=== PATIENT | male | born 1955 | race Caucasian/White ===

== ENCOUNTER → 2023-11-21 07:30 | Outpatient (REF) | payer OTHER, SELFPAY | LOC: HWCARD 07:30 | PROVIDERS: ATTENDING PHYSICIAN Nurse Practitioner Family | DX: I25.10 Atherosclerotic heart disease of native coronary artery without angina pectoris (principal); R42 Dizziness and giddiness; R07.89 Other chest pain | CPT/HCPCS: 93005 ==

== ENCOUNTER → 2023-11-22 09:26 | Outpatient (REF) | payer OTHER, SELFPAY | LOC: RCS 09:26 | PROVIDERS: ATTENDING PHYSICIAN Nurse Practitioner Family | DX: R42 Dizziness and giddiness (principal); I25.10 Atherosclerotic heart disease of native coronary artery without angina pectoris; R07.89 Other chest pain; Z72.0 Tobacco use; E78.2 Mixed hyperlipidemia | CPT/HCPCS: 93017; 93350 ==

== ENCOUNTER 2024-02-01 20:35 | Inpatient (IN) | payer OTHER, SELFPAY ==
[2024-02-01] VITALS (7 sets, daily range): BP systolic 111–146; BP diastolic 66–87; BMI 23.3; BMI 22.7
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
[2024-02-01] MEDS: OMNIPAQUE 50 ML PO (15:41)
[2024-02-01 15:56] LABS: % Basophils 0.5 % (0-2); % Eosinophils 1.2 % (0-6); % Immature Granulocytes 0.3 % (0-0.5); % Lymphocytes 7.7 % (20.5-51.1); % Monocytes 10.2 % (1.7-9.3); % Neutrophils 80.1 % (42.2-75.2); Absolute Basophils 0.1 10^3/uL (0-0.2); Absolute Eosinophils 0.2 10^3/uL (0-0.7); Absolute Monocytes 1.3 10^3/uL (0.1-0.6); Absolute Neutrophils 9.9 10^3/uL (1.4-6.5); Hematocrit 41.7 % (39.0-52.0); Hemoglobin 14.4 g/dL (13.0-18.0); Mean Corp Hgb Conc. 34.5 g/dL (33.0-37.0); Mean Corpuscular Hgb 29.8 pg (27.0-31.0); Mean Corpuscular Volume 86.2 fL (80.0-94.0); Mean Platelet Volume 9.8 fL (7.4-10.4); Nucleated Red Blood Cells % 0 % (-); Platelet Count 248 10^3/uL (130-400); Red Blood Cell Count 4.84 10^6/uL (4.70-6.10); Red Cell Dist. Width 13.1 % (11.5-14.5); White Blood Cell Count 12.4 10^3/uL (4.8-10.8)
[2024-02-01 16:03] LABS: Urine Albumin Negative (Neg - Trace); Urine Bilirubin Negative (Negative); Urine Character Clear (Clear); Urine Color Yellow; Urine Glucose Negative (Negative); Urine Ketone 1+ (Negative); Urine Leukocyte Negative (Negative); Urine Nitrite Negative (Negative); Urine Occult Blood Negative (Negative); Urine Specific Gravity 1.015 (<1.030); Urine Urobilinogen Negative (Neg - 1+); Urine pH 6.5 (5.0-9.0)
[2024-02-01 16:08] LABS: ALT (SGPT) 19 U/L (0-50); AST (SGOT) 23 U/L (17-59); Alkaline Phosphatase 86 U/L (38-126); Blood Urea Nitrogen 15 mg/dl (9-20); Calcium 9.4 mg/dl (8.4-10.2); Carbon Dioxide 26 mmol/L (22-30); Chloride 101 mmol/L (98-107); Estimated Creatinine Clearance 74 ml/min; Glucose 111 mg/dl (70-99); Lipase 93 U/L (23-300); Potassium 4.3 mmol/L (3.5-5.1); Sodium 139 mmol/L (135-145); Total Bilirubin 0.7 mg/dl (0.2-1.3); Total Protein 6.8 g/dl (6.3-8.2); eGFR > 60.00
[2024-02-01] MEDS: ZOFRAN 4 MG IV (19:49)
[2024-02-01] MEDS: DILAUDID 1 MG IV (19:51)
--- NOTE | 2024-02-01 19:52 | HPS.HSE ---
Addendum entered and electronically signed by Kevin Carranza DO 02/01/24 21:06:
Patient seen and examined independently. Agree with findings and plan as set forth by BRIJESH Su.
Patient is a 68y M with PMH significant for COPD and diverticulitis who presents to ED complaining of abdominal discomfort x several days. Patient complains of feeling constipated for the past week or so and has been taking OTC medications with
minimal relief. He then developed mid / lower abdominal pain which has steadily increased. No N/V. No fevers / chills. Symptoms are similar to - though less severe than - his prior episode of diverticulitis.
Ass:
Acute Sigmoid Diverticulitis with Microperforation
COPD without Acute Exacerbation
Depression
Plan:
Admit for further evaluation and treatment.
NPO, IVFs, pain control, etc.
IV abx with Zosyn.
Colorectal Surgery evaluation.
Follow for any new / worsening symptoms.
Continue home inhaled medications, duloxetine and statin.
Original Note:
Family Physician
-
Family Physician: Teresa Ramos
Chief Complaint
-
constipation
abdominal pain
History of Present Illness
68-year-old male with history of COPD, diverticulitis, GERD stated constipation for past one week. he took milk of mag for 3 day and he moved small amount of liquid stool. denied any blood in the stool. patient stated mid lower abdominal pain which
was radiating to his bilateral thigh. denied nausea, vomiting and diarrhea. denied fever, chills, runny nose, congestion and cough. denied chest pain, sob.patient stated abdominal pain with urination and urinary frequency.
CT abdomen pelvis with extensive stranding and edema along the sigmoid colon consistent with severe diverticulitis. There is a 1.4 cm more focal focus of fluid infiltrates gas along the inferior aspect of the mid sigmoid colon suspicious for
microperforation.
patient received Dilaudid, Levaquin,Flagyl and Zofran in ER. admitting for further management.
Medical History
Past Medical History
Past Medical History: Reports Other
Additional Past Medical History:
COPD
diverticulosis
GERD
HLD
depression
Past Surgical History: Reports Other
Additional Past Surgical History:
Tonsillectomy
exlap
wisdom teeth extraction
hernia repair
Social History
Tobacco: Smoker (1 pack )
Alcohol: None
Drug: None
Personal:
Living: With Family
Family History
Family History: Not pertinent
Allergies / Home Medications
Allergies reflects when Allergies were last updated in [employer].
Home Medications with original date entered in [employer]
Allergy/Medication List:
Allergies
Allergy/AdvReac Type Severity Reaction Status Date / Time
No Known Allergies Allergy Verified 02/01/24 14:20
Home Medications
cyanocobalamin (vitamin B-12) 1,000 mcg tablet 1,000 mcg PO DAILY anemia 11/05/18
albuterol sulfate 90 mcg/actuation aerosol inhaler 2 puff inhalation R Q4HPRN PRN sob 02/01/24
cholecalciferol (vitamin D3) 50 mcg (2,000 unit) tablet (Vitamin D3) 50 mcg PO DAILY 02/01/24
duloxetine 30 mg capsule,delayed release 30 mg PO BID 02/01/24
ibuprofen 200 mg tablet (Advil) 400 mg PO Q8HPRN PRN mild pain 02/01/24
rosuvastatin 20 mg tablet 20 mg PO HS 02/01/24
Review of Systems
-
Constitutional: Reports No Symptoms
EENT: Reports No Symptoms
Respiratory: Reports No Symptoms
Cardiac: Reports No Symptoms
Abdomen/GI: Reports Abdominal Pain and Constipated
: Reports Frequency
Musculoskeletal: Reports No Symptoms
Skin: Reports No Symptoms
Neurological: Reports No Symptoms
Endocrine: Reports No Symptoms
Hematologic/Lymphatic: Reports No Symptoms
Psych: Reports No Symptoms
Physical Exam
Vital Signs
Vital Signs
Temp Pulse Resp BP Pulse Ox
99.5 F 66 16 122/86 98
02/01/24 19:48 02/01/24 19:48 02/01/24 19:48 02/01/24 19:48 02/01/24 19:48
Physical Exam
General: Well Developed, Well Nourished and No Apparent Distress
HEENT: NormoCephalic, Moist mucous membranes and Atraumatic
Respiratory: Clear
Cardiac: S1/S2 and Regular Rhythm; No Murmur or Rub
GI: Soft, Non Tender, Non Distended and Normal Bowel Sounds; No Organomegaly
Rectal: Deferred by Provider
Musculoskeletal: No Clubbing, No Cyanosis and No Edema
Skin: No Rash
Neuro: AO x 3 and Nonfocal/grossly intact
Psych: Calm
Laboratory Results
-
02/01/24 15:38
02/01/24 15:38
Laboratory Results
Total Bilirubin 0.7 mg/dl (0.2-1.3) 02/01/24 15:38
AST 23 U/L (17-59) 02/01/24 15:38
ALT 19 U/L (0-50) 02/01/24 15:38
Alkaline Phosphatase 86 U/L (38-126) 02/01/24 15:38
Lipase 93 U/L (23-300) 02/01/24 15:38
Data Reviewed
-
CT Scan: Report Reviewed by me
Lab Data: Labs Reviewed by me
Impression/Plan
-
#severe diverticulitis possible perforation
-wbc 12.4
-keep patient NPO
-colorectal consulted
-CT abdomen pelvis with There is extensive stranding and edema along the sigmoid colon consistent with severe diverticulitis. There is a 1.4 cm more focal focus of fluid infiltrates gas along the inferior aspect of the mid sigmoid colon suspicious
for microperforation.
-iv Levaquin and Flagyl in ER
-add Zosyn
-LR continued for hydration
-Tylenol prn fo fever
-Dilaudid prn for pain
#COPD
-not in exacerbation
-nebs from home continued
#depression
-duloxetine continued
#HLD
-statin continued
#nicotine dependence
-denied nicotine patch.
#DVT prophylaxis
-Lovenox
#CODE status
-full code
[2024-02-01] MEDS: FLAGYL 500 MG 100 IV (19:55)
[2024-02-01] MEDS: LEVAQUIN 100 IV (19:55)
[2024-02-01] MEDS: LR 1000 IV (22:37)
[2024-02-01] MEDS: ZOSYN 50 IV (22:44)
[2024-02-01] MEDS: CRESTOR 20 MG PO (22:46)
[2024-02-01] MEDS: TYLENOL 650 MG PO (22:46)
--- NOTE | 2024-02-01 23:30 | PTCARENOTE ---
Pt received from ED at 2320. Pt pleasant, AAOX3, VSS, and able to ambulate into room. Pt receptive to room and call roach, pt bed in lowest position and call roach within reach. Pt educated on importance of call roach usage, pt relays understanding and
cooperation. Will continue with current plan of care.
[2024-02-02] MEDS: ZOSYN 50 IV ×4 (03:56→21:42)
[2024-02-02] MEDS: DILAUDID 0.5 MG IV ×4 (03:59→22:28)
[2024-02-02 06:03] LABS: Hematocrit 40.2 % (39.0-52.0); Hemoglobin 13.9 g/dL (13.0-18.0); Mean Corp Hgb Conc. 34.6 g/dL (33.0-37.0); Mean Corpuscular Hgb 30.5 pg (27.0-31.0); Mean Corpuscular Volume 88.4 fL (80.0-94.0); Mean Platelet Volume 9.9 fL (7.4-10.4); Platelet Count 230 10^3/uL (130-400); Red Blood Cell Count 4.55 10^6/uL (4.70-6.10); Red Cell Dist. Width 12.9 % (11.5-14.5); White Blood Cell Count 12.5 10^3/uL (4.8-10.8)
[2024-02-02 06:26] LABS: Blood Urea Nitrogen 14 mg/dl (9-20); Calcium 9.1 mg/dl (8.4-10.2); Carbon Dioxide 26 mmol/L (22-30); Chloride 101 mmol/L (98-107); Estimated Creatinine Clearance 67 ml/min; Glucose 92 mg/dl (70-99); Potassium 4.4 mmol/L (3.5-5.1); Sodium 138 mmol/L (135-145); eGFR > 60.00
[2024-02-02 07:00] VITALS: BP 115/68
--- NOTE | 2024-02-02 07:41 | W.PN.HOSP.TC ---
Today's Communication/Plan
-
diet as per surgery
IVF completed, monitor off
cont abx
pain control
Assessment / Plan
Assessment / Plan
Physical Exam
General: Well Developed, Well Nourished and No Apparent Distress
HEENT: NormoCephalic, Moist mucous membranes and Atraumatic
Respiratory: Clear
Cardiac: S1/S2 and Regular Rhythm; No Murmur or Rub
GI: Soft, Non Tender, Non Distended and Normal Bowel Sounds; No Organomegaly
Musculoskeletal: No Clubbing, No Cyanosis and No Edema
Skin: No Rash
Neuro: AO x 3 and Nonfocal/grossly intact
Psych: Calm
68M COPD, diverticulitis, GERD constipation for past one week. Denied any blood in the stool. Reported mid lower abdominal pain radiating to his bilateral thigh. Denied nausea, vomiting, diarrhea, fever, chills, runny nose, congestion and cough.
Reported abdomen pain with urination and urinary frequency. CT abdomen pelvis with extensive stranding and edema along the sigmoid colon consistent with severe diverticulitis. There was 1.4 cm more focal focus of fluid infiltrates gas along the
inferior aspect of the mid sigmoid colon suspicious for microperforation.
#severe diverticulitis possible perforation
-colorectal consult appreciated, diet advanced to clear liquid tolerating
-received iv Levaquin and Flagyl in ER
-abx continued with Zosyn
-IVF support completed
-Tylenol prn fo fever
-Dilaudid prn for pain
#COPD
-not in exacerbation
-nebs from home continued
#depression
-duloxetine continued
#HLD
-statin continued
#nicotine dependence
-denied nicotine patch.
#DVT prophylaxis
-Lovenox
#CODE status
-full code
I spent a total of 50 minutes with the patient or on the floor. More than 50% of this time involved counseling and coordination of care.
Anticipated Discharge: 24 - 48 hours
Subjective/Interval History
-
Date of Service: February 02, 2024
Seen and examined at bedside in no acute distress resting comfortably in bed. Reports lower abd pain/tenderness persists but well controlled at this time with current pain regimen. Denies nausea. Tolerated cleare liquid diet.
Objective Data
-
Labs:
Laboratory Results
02/02/24
05:27
WBC 12.5 H
Hgb 13.9
Hct 40.2
Plt Count 230
Sodium 138
Potassium 4.4
Chloride 101
Carbon Dioxide 26
BUN 14
Creatinine 1.0
Glucose 92
Calcium 9.1
Vital Signs:
Vital Signs
Temp Pulse Resp BP Pulse Ox
99.1 F 77 18 124/66 96
02/01/24 23:24 02/02/24 01:27 02/02/24 01:27 02/01/24 23:24 02/02/24 01:27
[2024-02-02] MEDS: CYMBALTA DELAYED RELEASE 30 MG PO ×2 (08:37→19:43)
[2024-02-02] MEDS: LR IV (11:56)
--- NOTE | 2024-02-02 14:09 | CON.CRS ---
Consultation
-
Date/Time Consultation Requested: 02/01/2024, 19:43
Date/Time Consultation Performed: 02/02/2024, 10:30
Requesting Provider: Nancy Young
Performing Provider: Rebel Zavala MD
Reason for Consultation: diverticulitis
Medical History
-
Chief Complaint: abdominal pain
History of Present Illness:
68yo male with a PMH of diverticulitis presents to the ER yesterday with several days of constipation and abdominal pain. He denies fevers, chills, nausea or vomiting. He took milk of magnesia yesterday and had a small amount of liquid stool. He has
no blood in his stool. He had mid lower abdominal pain into his thigh and feels a little better today. The patient states this is his second attack, although he does have three CT scans showing diverticulitis at different times - one in 2018, one in
2019, and CT performed yesterday. He was seen in consult in [address] Mcpherson. He was treated with bowel rest and antibiotics at that time. CT A/P performed yesterday shows extensive stranding and edema along the sigmoid colon consistent with severe
diverticulitis. There is a 1.4 cm more focal focus of fluid infiltrates gas along the inferior aspect of the mid sigmoid colon suspicious for microperforation. He has been admitted and started on IV antibiotics.
His last colonoscopy was in [address] Mcpherson which revealed one 5 mm polyp in the sigmoid colon with diverticulosis in the sigmoid colon.
Past Medical History
Past Medical History: Other (COPD, diverticulosis, GERD, HLD, depression )
Past Surgical History: Other (Tonsillectomy, exlap, wisdom teeth extraction, hernia repair)
Social History
Tobacco: Smoker (1 pack)
Alcohol: None
Drug: None
Personal:
Living: With Family
Family History
Family History: Reviewed & Not Pertinent
Allergies / Home Medications
Allergy/AdvReac Type Severity Reaction Status Date / Time
No Known Allergies Allergy Verified 02/01/24 14:20
�Medication �Instructions �Recorded �Confirmed �Type
cyanocobalamin (vitamin B-12) 1,000 mcg PO DAILY anemia 11/05/18 02/01/24 History
1,000 mcg tablet
albuterol sulfate 90 mcg/actuation 2 puff inhalation R Q4HPRN PRN sob 02/01/24 02/01/24 History
aerosol inhaler
cholecalciferol (vitamin D3) 50 50 mcg PO DAILY 02/01/24 02/01/24 History
mcg (2,000 unit) tablet (Vitamin
D3)
duloxetine 30 mg capsule,delayed 30 mg PO BID 02/01/24 02/01/24 History
release
ibuprofen 200 mg tablet (Advil) 400 mg PO Q8HPRN PRN mild pain 02/01/24 02/01/24 History
rosuvastatin 20 mg tablet 20 mg PO HS 02/01/24 02/01/24 History
Review of Systems
-
History Source: Patient
Abdomen/GI: Abdominal Pain and Constipated
A 10 point review of systems was completed, and was negative except as per HPI.
Physical Exam
Vital Signs
Temp 98 F 02/02/24 07:00
Pulse 77 02/02/24 07:00
Resp Rate 18 02/02/24 07:00
Blood pressure 115/68 02/02/24 07:00
SaO2 99 02/02/24 07:00
02/01/24 02/02/24 02/03/24
06:59 06:59 05:59
Actual Weight 65.68 kg
Body Mass Index (BMI) 22.7
Lab Results / Allergies
02/02/24 05:27
02/02/24 05:27
WBC 12.5 10^3/uL (4.8-10.8) H 02/02/24 05:27
Hgb 13.9 g/dL (13.0-18.0) 02/02/24 05:27
Hct 40.2 % (39.0-52.0) 02/02/24 05:27
Plt Count 230 10^3/uL (130-400) 02/02/24 05:27
Abs Immat Gran (auto) 0.0 10^3/uL (0-0.05) 02/01/24 15:38
Neutrophils % 80.1 % (42.2-75.2) H 02/01/24 15:38
Allergy/AdvReac Type Severity Reaction Status Date / Time
No Known Allergies Allergy Verified 02/01/24 14:20
Physical Exam
General: Well Developed, Well Nourished and No Apparent Distress
GI: Soft, Non Distended and Tender (LLQ- mild)
Skin: Warm and Dry
Neuro: AO x 3
Psych: Calm
Data Reviewed
-
CT Scan: Image Personally Visualized and interpreted, Report Reviewed by me and Discussed with Patient
Labs: Labs Reviewed by me, Discussed with Physician and Discussed with Patient
Old Records: Reviewed
Assessment / Plan
-
Assessment: 68 yo male presents with several days of constipation and abdominal pain, with uncomplicated sigmoid diverticulitis on CT
Plan:
-Advance diet to clears
-No plans for OR at this time. If he worsens, he will require a colectomy with colostomy creation.
-Continue IV antibiotics.
-Will follow
[2024-02-02 15:00] VITALS: BP 117/70
[2024-02-02] MEDS: LOVENOX 40 MG SC (17:07)
[2024-02-02] MEDS: CRESTOR 20 MG PO (21:39)
[2024-02-02 23:40] VITALS: BP 107/66
[2024-02-03] MEDS: ZOSYN 50 IV ×4 (03:14→21:05)
--- NOTE | 2024-02-03 06:41 | W.PN.HOSP.TC ---
Today's Communication/Plan
-
cont zosyn
pain control
diet as per CRS
Assessment / Plan
Assessment / Plan
Physical Exam
General: Well Developed, Well Nourished and No Apparent Distress
HEENT: NormoCephalic, Moist mucous membranes and Atraumatic
Respiratory: Clear
Cardiac: S1/S2 and Regular Rhythm; No Murmur or Rub
GI: Soft, Suprapubic tenderness, Non Distended and Normal Bowel Sounds; No Organomegaly
Musculoskeletal: No Clubbing, No Cyanosis and No Edema
Skin: No Rash
Neuro: AO x 3 and Nonfocal/grossly intact
Psych: Calm
68M COPD, diverticulitis, GERD constipation for past one week. Denied any blood in the stool. Reported mid lower abdominal pain radiating to his bilateral thigh. Denied nausea, vomiting, diarrhea, fever, chills, runny nose, congestion and cough.
Reported abdomen pain with urination and urinary frequency. CT abdomen pelvis with extensive stranding and edema along the sigmoid colon consistent with severe diverticulitis. There was 1.4 cm more focal focus of fluid infiltrates gas along the
inferior aspect of the mid sigmoid colon suspicious for microperforation.
#severe diverticulitis possible perforation
-colorectal consult appreciated, diet gradually advanced to full liquid
-received iv Levaquin and Flagyl in ER
-abx continued with Zosyn
-IVF support completed
-Tylenol prn fo fever
-Dilaudid prn for pain
#COPD
-not in exacerbation
-nebs from home continued
#depression
-duloxetine continued
#HLD
-statin continued
#nicotine dependence
-denied nicotine patch.
#DVT prophylaxis
-Lovenox
PT eval appreciated not needs
#CODE status
-full code
Discussed with patient and patient's Eloina (goes by 'Milana, like the car')
I spent a total of 40 minutes with the patient or on the floor. More than 50% of this time involved counseling and coordination of care.
Anticipated Discharge: 24 - 48 hours
Subjective/Interval History
-
Date of Service: February 03, 2024
Pain persists but otherwise tolerable with current pain regimen. Tolerating diet. Denies nausea. no bowel movements but passing flatus. present during evaluation.
Objective Data
-
Labs:
Laboratory Results
02/03/24
06:02
WBC Pending
Hgb Pending
Hct Pending
Plt Count Pending
Sodium Pending
Potassium Pending
Chloride Pending
Carbon Dioxide Pending
BUN Pending
Creatinine Pending
Glucose Pending
Calcium Pending
Vital Signs:
Vital Signs
Temp Pulse Resp BP Pulse Ox
99.7 F 76 18 107/66 96
02/02/24 23:40 02/02/24 23:40 02/02/24 23:40 02/02/24 23:40 02/02/24 23:40
I&O
02/01/24 02/02/24 02/03/24
06:59 06:59 05:59
Intake Total 1451 / 1451
Balance 1451 / 1451
[2024-02-03 07:02] LABS: Hematocrit 39.4 % (39.0-52.0); Mean Corp Hgb Conc. 35.5 g/dL (33.0-37.0); Mean Corpuscular Hgb 30.6 pg (27.0-31.0); Platelet Count 226 10^3/uL (130-400); Red Blood Cell Count 4.58 10^6/uL (4.70-6.10); Red Cell Dist. Width 12.5 % (11.5-14.5)
[2024-02-03 07:20] LABS: Blood Urea Nitrogen 11 mg/dl (9-20); Calcium 8.9 mg/dl (8.4-10.2); Carbon Dioxide 24 mmol/L (22-30); Chloride 97 mmol/L (98-107); Estimated Creatinine Clearance 74 ml/min; Glucose 83 mg/dl (70-99); Magnesium 1.9 mg/dl (1.6-2.3); Phosphorus 3.7 mg/dl (2.5-4.5); Potassium 4.1 mmol/L (3.5-5.1); Sodium 136 mmol/L (135-145); eGFR > 60.00
[2024-02-03 07:58] VITALS: BP 110/70
[2024-02-03] MEDS: CYMBALTA DELAYED RELEASE 30 MG PO ×2 (08:24→21:06)
[2024-02-03] MEDS: DILAUDID 0.5 MG IV ×2 (08:28→18:17)
--- NOTE | 2024-02-03 10:45 | CM ---
Met with patient at bedside; initial assessment completed
IMM benefit explained; form signed @ 1045
Pharmacy verified: [facility] @ [address] [facility], [place], [place]
Lives with in a multilevel home; no steps to enter; 20 steps between floor; railing present; powder room on 1st floor; 2nd floor bath has tub w/shower
PLOF: reported he is independent with ambulation, stairs, and ADLs; Drives; Retired
will transport home
No SNF or Home Health utilization history
Plan: Discharge to home when medically stable; no needs anticipated
--- NOTE | 2024-02-03 11:38 | W.PN.CRS1 ---
Today's Communication / Plan
-
advance to fulls
Assessment/Plan
-
Assessment: 68 yo male presents with several days of constipation and abdominal pain, with uncomplicated sigmoid diverticulitis on CT
Plan:
-Advance diet to fulls
-No plans for OR at this time. If he worsens, he will require a colectomy with colostomy creation.
-Continue IV antibiotics.
-Will follow
Subjective Data
Subjective Data
Date of Service: February 03, 2024
Patient states he is still in 'quite a bit of pain' until this morning, when he had a lot of flatus and then felt better. He denies nausea or vomiting. He has been drinking clears without difficulty.
Objective Data
-
Vital Signs
Temp Pulse Resp BP Pulse Ox
98.3 F 76 16 110/70 98
02/03/24 07:58 02/03/24 07:58 02/03/24 07:58 02/03/24 07:58 02/03/24 07:58
Intake & Output
02/02/24 02/03/24 02/04/24
07:59 06:59 06:59
Intake Total
Balance
Intake:
Oral fluids
IV fluids (Total)
IV piggybacks
Other:
Number of approximated MODERATE
amounts of urine
Lab Results
02/03/24 06:02
02/03/24 06:02
Physical Exam
-
General: No Acute Distress and AOx3
Abdomen: Soft, Non Distended and Tender (suprapubic - moderate)
Skin: Warm and Dry
[2024-02-03 16:08] VITALS: BP 125/72; PULSE 77; O2SAT 97
[2024-02-03 16:42] VITALS: BP 123/65
[2024-02-03] MEDS: LOVENOX 40 MG SC (17:42)
[2024-02-03] MEDS: CRESTOR 20 MG PO (21:06)
[2024-02-03] MEDS: TYLENOL 650 MG PO (21:10)
[2024-02-03 23:37] VITALS: BP 101/61
[2024-02-04] MEDS: ZOSYN 50 IV ×4 (04:33→22:09)
[2024-02-04 07:15] VITALS: BP 104/69
[2024-02-04 08:28] LABS: Hematocrit 38.6 % (39.0-52.0); Hemoglobin 13.7 g/dL (13.0-18.0); Mean Corp Hgb Conc. 35.5 g/dL (33.0-37.0); Mean Corpuscular Hgb 30.4 pg (27.0-31.0); Mean Corpuscular Volume 85.6 fL (80.0-94.0); Platelet Count 258 10^3/uL (130-400); Red Blood Cell Count 4.51 10^6/uL (4.70-6.10); Red Cell Dist. Width 12.4 % (11.5-14.5); White Blood Cell Count 8.1 10^3/uL (4.8-10.8)
[2024-02-04] MEDS: CYMBALTA DELAYED RELEASE 30 MG PO ×2 (08:37→19:20)
[2024-02-04 09:00] LABS: Blood Urea Nitrogen 9 mg/dl (9-20); Calcium 8.8 mg/dl (8.4-10.2); Carbon Dioxide 26 mmol/L (22-30); Chloride 98 mmol/L (98-107); Estimated Creatinine Clearance 74 ml/min; Glucose 94 mg/dl (70-99); Phosphorus 3.4 mg/dl (2.5-4.5); Sodium 138 mmol/L (135-145); eGFR > 60.00
--- NOTE | 2024-02-04 09:11 | W.PN.HOSP.TC ---
Today's Communication/Plan
-
Doing better
If stable/improved, can discharge tomorrow, as per colorectal surgery
Assessment / Plan
Assessment / Plan
Physical Exam
General: Not in acute distress.
HEENT: Normocephalic, Moist mucous membranes and Atraumatic
Respiratory: CTAB
Cardiac: S1/S2 and Regular Rhythm
GI: Soft, Non Distended and Normal Bowel Sounds. Lower abdominal mild to moderate tenderness.
Musculoskeletal: No Cyanosis and No Edema
Skin: Warm. Dry.
Neuro: AAO x 3 and Nonfocal/grossly intact
Psych: Calm
Assessment/Plan
68M COPD, diverticulitis, GERD constipation for past one week. Denied any blood in the stool. Reported mid lower abdominal pain radiating to his bilateral thigh. Denied nausea, vomiting, diarrhea, fever, chills, runny nose, congestion and cough.
Reported abdomen pain with urination and urinary frequency. CT abdomen pelvis with extensive stranding and edema along the sigmoid colon consistent with severe diverticulitis. There was 1.4 cm more focal focus of fluid infiltrates gas along the
inferior aspect of the mid sigmoid colon suspicious for microperforation.
#Severe diverticulitis possible perforation
-Colorectal surgery consultation appreciated, diet gradually advanced to Low Residue
-Received intravenous Levaquin and Flagyl in the emergency room
-Continue Zosyn
-IVF support completed
-Tylenol prn for fever
-Dilaudid prn for pain
#COPD
-not in exacerbation
-nebs from home continued
#depression
-duloxetine continued
#HLD
-statin continued
#nicotine dependence
-denied nicotine patch.
#DVT prophylaxis
-Lovenox
PT eval appreciated not needs
#CODE status
-full code
Discussed with patient and patient's Eloina (goes by 'Milana, like the car')
Anticipated Discharge: Within 24 hours
Subjective/Interval History
-
Date of Service: February 04, 2024
Patient was seen and examined. He reported soft, brown mushy stools with some water in his bowel movements overnight. He reports his pain and symptoms overall had improved.
Objective Data
-
Labs:
Laboratory Results
02/04/24
06:24
WBC 8.1
Hgb 13.7
Hct 38.6 L
Plt Count 258
Sodium 138
Potassium 4.0
Chloride 98
Carbon Dioxide 26
BUN 9
Creatinine 0.9
Glucose 94
Calcium 8.8
Vital Signs:
Vital Signs
Temp Pulse Resp BP Pulse Ox
98.1 F 64 16 104/69 99
02/04/24 07:15 02/04/24 07:15 02/04/24 07:15 02/04/24 07:15 02/04/24 07:15
I&O
02/03/24 02/04/24 02/05/24
06:59 06:59 06:59
Intake Total 760 / 760
Balance 760 / 760
--- NOTE | 2024-02-04 09:32 | W.PN.CRS1 ---
Today's Communication / Plan
-
low residue diet
Assessment/Plan
-
Assessment: 68 yo male presents with several days of constipation and abdominal pain, with uncomplicated sigmoid diverticulitis on CT
Plan:
-Advance diet to low residue
-No plans for OR at this time. Will discuss with Dr. Mcpherson in the outpatient setting if he should need elective surgery given his number of prior attacks.
-Continue IV antibiotics. Finish oral course as an outpatient.
-Anticipate discharge tomorrow if tolerates a low residue diet today. Follow up with Dr. Mcpherson in a few weeks.
Subjective Data
Subjective Data
Date of Service: February 04, 2024
Patient states he feels much better than yesterday. He still has pain, but it has decreased. He denies nausea or vomiting. He has flatus and bowel movements.
Objective Data
-
Vital Signs
Temp Pulse Resp BP Pulse Ox
98.1 F 64 16 104/69 99
02/04/24 07:15 02/04/24 07:15 02/04/24 07:15 02/04/24 07:15 02/04/24 07:15
Intake & Output
02/03/24 02/04/24 02/05/24
06:59 06:59 06:59
Intake Total 760 / 760
Balance 760 / 760
Intake:
Oral fluids 660 / 660
IV fluids (Total) 0 / 0
IV piggybacks 100 / 100
Other:
Number of approximated MODERATE 3
amounts of urine
Lab Results
02/04/24 06:24
02/04/24 06:24
Physical Exam
-
General: No Acute Distress and AOx3
Abdomen: Soft, Non Distended and Tender (suprapubic - mild)
Skin: Warm and Dry
--- NOTE | 2024-02-04 10:22 | CM ---
CM reviewed chart, met with patient and spouse bedside. Patient reports no needs to CM at this time. CM reviewed IMM, patient refused to sign, provided with copy. CM will continue to follow for all discharge planning needs.
Plan; home with , no needs.
[2024-02-04] MEDS: DILAUDID 0.5 MG IV ×2 (12:00→20:42)
[2024-02-04 14:54] VITALS: BP 106/71
[2024-02-04] MEDS: LOVENOX 40 MG SC (18:24)
[2024-02-04] MEDS: CRESTOR 20 MG PO (22:08)
[2024-02-04 23:48] VITALS: BP 115/71
[2024-02-05] MEDS: ZOSYN 50 IV ×2 (04:27→09:27)
[2024-02-05 07:47] VITALS: BP 113/68
[2024-02-05] MEDS: CYMBALTA DELAYED RELEASE 30 MG PO (07:59)
[2024-02-05 08:28] LABS: Hematocrit 39.4 % (39.0-52.0); Hemoglobin 14.1 g/dL (13.0-18.0); Mean Corp Hgb Conc. 35.8 g/dL (33.0-37.0); Mean Corpuscular Hgb 30.6 pg (27.0-31.0); Mean Corpuscular Volume 85.5 fL (80.0-94.0); Mean Platelet Volume 9.8 fL (7.4-10.4); Platelet Count 312 10^3/uL (130-400); Red Blood Cell Count 4.61 10^6/uL (4.70-6.10); Red Cell Dist. Width 12.4 % (11.5-14.5)
--- NOTE | 2024-02-05 08:38 | W.PN.CRS1 ---
Today's Communication / Plan
-
Disposition per hospitalist.
Assessment/Plan
-
Diverticulitis.
1. less pain/tenderness. WBC normal and afebrile.
2. tolerating LRD.
3. disposition per hospitalist. ok for discharge from surgical perspective. Follow up with us as outpatient in a few weeks time.
Subjective Data
Subjective Data
Date of Service: February 05, 2024
Less pain.
Tolerating LRD.
Objective Data
-
Vital Signs
Temp Pulse Resp BP Pulse Ox
98.0 F 58 17 113/68 98
02/05/24 07:47 02/05/24 07:47 02/05/24 07:47 02/05/24 07:47 02/05/24 07:47
Intake & Output
02/04/24 02/05/24 02/06/24
06:59 06:59 06:59
Intake Total 760 / 760 1939
Balance 760 / 760 1939
Intake:
Oral fluids 660 / 660 0 / 1839
IV fluids (Total) 0 / 0
IV piggybacks 100 / 100 100 / 100
Other:
Number of approximated MODERATE 3 3
amounts of urine
How many times incontinent 5
MODERATE amount urine
Lab Results
02/05/24 06:40
Physical Exam
-
General: No Acute Distress
Chest: Clear
Cardiovascular: Regular Rate & Rhythm
Abdomen: Soft, Non Distended and Tender (mild suprapubic)
[2024-02-05 09:07] LABS: Blood Urea Nitrogen 9 mg/dl (9-20); Calcium 9.2 mg/dl (8.4-10.2); Carbon Dioxide 27 mmol/L (22-30); Chloride 97 mmol/L (98-107); Estimated Creatinine Clearance 74 ml/min; Glucose 80 mg/dl (70-99); Magnesium 2.1 mg/dl (1.6-2.3); Phosphorus 4.1 mg/dl (2.5-4.5); Potassium 4.2 mmol/L (3.5-5.1); Sodium 137 mmol/L (135-145); eGFR > 60.00
--- NOTE | 2024-02-05 11:34 | W.PN.HOSP.TC ---
Today's Communication/Plan
-
Discharge today
Assessment / Plan
Assessment / Plan
Physical Exam
General: Not in acute distress.
HEENT: Normocephalic, Moist mucous membranes and Atraumatic
Respiratory: CTAB
Cardiac: S1/S2 and Regular Rhythm
GI: Soft, Non Distended and Normal Bowel Sounds. Lower abdominal mild tenderness.
Musculoskeletal: No Cyanosis and No Edema
Skin: Warm. Dry.
Neuro: AAO x 3 and Nonfocal/grossly intact
Psych: Calm
Assessment/Plan
68 y/o male with past medical history of COPD, diverticulitis, GERD constipation for past one week. Denied any blood in the stool. Reported mid lower abdominal pain radiating to his bilateral thighs. Denied nausea, vomiting, diarrhea, fever,
chills, runny nose, congestion and cough. Reported abdomen pain with urination and urinary frequency. CT abdomen pelvis with extensive stranding and edema along the sigmoid colon consistent with severe diverticulitis. There was 1.4 cm more focal
focus of fluid infiltrates gas along the inferior aspect of the mid sigmoid colon suspicious for microperforation.
#Uncomplicated sigmoid diverticulitis
-Colorectal surgery consultation appreciated, diet gradually advanced to Low Residue Diet
-Received intravenous Levaquin and Flagyl in the emergency room
-Zosyn inpatient
-On discharge, Augmentin 875 mg Q12H for another 8 days (discussed this regimen with clinical pharmacist and we agreed it was a good regimen to give the patient, on discharge)
-Follow-up with colorectal surgery/Dr. Zavala in 2 to 3 weeks.
#COPD
-not in exacerbation
-nebs from home continued
#depression
-duloxetine continued
#HLD
-statin continued
#nicotine dependence
-denied nicotine patch.
#DVT prophylaxis
-Lovenox
PT eval appreciated not needs
#CODE status
-full code
More than 30 minutes spent in discharge including
Final examination of the patient
Summarizing hospital stay
Instructions for continuing care to all relevant caregivers
Preparation of discharge records, prescriptions, and referral forms
Total time spent (in minutes): 35
Anticipated Discharge: Today
Subjective/Interval History
-
Date of Service: February 05, 2024
Patient was seen and examined. He reported that his abdominal pain has significantly improved, he is tolerating his diet and he would like to go home today.
Objective Data
-
Labs:
Laboratory Results
02/05/24
06:40
WBC 7.0
Hgb 14.1
Hct 39.4
Plt Count 312 D
Sodium 137
Potassium 4.2
Chloride 97 L
Carbon Dioxide 27
BUN 9
Creatinine 0.9
Glucose 80
Calcium 9.2
Vital Signs:
Vital Signs
Temp Pulse Resp BP Pulse Ox
98.0 F 58 17 113/68 98
02/05/24 07:47 02/05/24 07:47 02/05/24 07:47 02/05/24 07:47 02/05/24 08:15
I&O
02/04/24 02/05/24 02/06/24
06:59 06:59 06:59
Intake Total 760 / 760 1939
Balance 760 / 760 1939
--- NOTE | 2024-02-05 12:36 | CM ---
CM following re: discharge planning.
Reviewed pt's chart, met with pt.
According to MD pt is medically stable to be discharged today. Pt is aware, expressed his agreement and he stated his spouse will transport home. IMM reviewed, placed on chart, pt has a copy.
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
D/C plan: home no needs. Spouse to transport.
[2024-02-05 13:33] VITALS: BP 115/62
== END 2024-02-05 14:17 | disposition home or self-care (01) | DRG 392 ==
LOC: 4 WEST ACU 20:35
PROVIDERS: Registered Nurse; ADMITTING PHYSICIAN Hospitalist; ATTENDING PHYSICIAN Hospitalist; CONSULT PHYSICIAN Surgery; EMERGENCY PHYSICIAN Emergency Medicine; FAMILY PHYSICIAN Family Medicine
DX: K57.20 Diverticulitis of large intestine with perforation and abscess without bleeding (principal); J44.9 Chronic obstructive pulmonary disease, unspecified; F32.A Depression, unspecified; E78.5 Hyperlipidemia, unspecified; F17.200 Nicotine dependence, unspecified, uncomplicated; K21.9 Gastro-esophageal reflux disease without esophagitis
CPT/HCPCS: 74177; 80048; 80053; 81003; 83690; 83735; 84100; 85025; 85027; 93005; 96365; 96367; 96375; 97162; 99285; 99406; Q9967

== ENCOUNTER → 2024-02-29 10:47 | Outpatient (REF) | payer OTHER, SELFPAY | LOC: HWRAD 10:47 | PROVIDERS: ATTENDING PHYSICIAN Surgery; FAMILY PHYSICIAN Internal Medicine | DX: K57.32 Diverticulitis of large intestine without perforation or abscess without bleeding (principal); Z72.0 Tobacco use | CPT/HCPCS: 71271; 74177; Q9967 ==

== ENCOUNTER 2024-03-28 11:23 | Inpatient (IN) | payer OTHER, SELFPAY ==
[2024-03-18 11:12] LABS: Hematocrit 44.3 % (39.0-52.0); Hemoglobin 14.7 g/dL (13.0-18.0); Mean Corp Hgb Conc. 33.2 g/dL (33.0-37.0); Mean Corpuscular Hgb 29.5 pg (27.0-31.0); Mean Platelet Volume 9.8 fL (7.4-10.4); Platelet Count 286 10^3/uL (130-400); Red Blood Cell Count 4.98 10^6/uL (4.70-6.10); Red Cell Dist. Width 13.7 % (11.5-14.5); White Blood Cell Count 5.2 10^3/uL (4.8-10.8)
[2024-03-18 11:21] LABS: INR 0.99; PT 13.4 Sec (11.4-14.6)
[2024-03-18 11:22] LABS: APTT 34.4 Sec (23.4-35.0)
[2024-03-18 11:44] LABS: Glycohemoglobin (HgbA1c) 5.8 % (4.0-5.6)
[2024-03-18 12:01] LABS: ALT (SGPT) 44 U/L (0-50); AST (SGOT) 33 U/L (17-59); Albumin 4.4 g/dl (3.5-5.0); Alkaline Phosphatase 66 U/L (38-126); Blood Urea Nitrogen 15 mg/dl (9-20); Calcium 9.7 mg/dl (8.4-10.2); Carbon Dioxide 28 mmol/L (22-30); Chloride 105 mmol/L (98-107); Glucose 96 mg/dl (70-99); Potassium 5.5 mmol/L (3.5-5.1); Sodium 141 mmol/L (135-145); Total Bilirubin 0.4 mg/dl (0.2-1.3); Total Protein 7.3 g/dl (6.3-8.2); eGFR > 60.00
[2024-03-18 13:46] VITALS: BMI 24.9
--- NOTE | 2024-03-20 13:49 | PTCARENOTE ---
Abn K+ 5.5, Anne at Dr. Mcpherson's office made aware.
--- NOTE | 2024-03-20 14:45 | PTCARENOTE ---
Dr. Caldwell made aware of K 5.5, no further action requested.
[2024-03-28] VITALS (12 sets, daily range): BP systolic 121–148; BP diastolic 65–83; BMI 24.9
[2024-03-28] MEDS: TYLENOL 1000 MG PO (10:41)
[2024-03-28] MEDS: ENTEREG 12 MG PO (10:41)
[2024-03-28] MEDS: HEPARIN 5000 UNITS SC (10:42)
[2024-03-28] MEDS: NORMOSOL-R/PLASMALYTE-A 1000 IV ×2 (10:42→19:31)
--- NOTE | 2024-03-28 18:33 | W.IMMPOSTOP ---
Surgical Immed Post Op Note
-
Primary Surgeon: Rajan Mcpherson MD
Assistants: BRYCE Archibald and Kellie Michelle PA-C
Pre-op Diagnosis: Recurrent sigmoid diverticulitis
Post-op Diagnosis: Same
Procedure Performed: Robotic sigmoid resection and intracorporeal anastomosis
Extensive lysis of adhesions (>1 hour)
Anesthesia Type: GET
Specimen / Cultures: Sigmoid colon (suture is proximal)
Estimated Blood Loss: 25cc
Complications: None
Operative Findings: Subacute inflammation of the midsigmoid colon
28mm EEA
Normal leak test
Mesh ball removed
Patient's updated.
[2024-03-28] MEDS: TORADOL 15 MG IV (19:06)
--- NOTE | 2024-03-28 20:30 | PTCARENOTE ---
Received pt. from PACU A&Ox3, drowsy but arousable to verbal stimuli, in NAD, denies pain and nausea at present, even and unlabored breathing on 2L NC, and VSS. Pt. oriented to room and unit policies, questions answered upon arrival. Bed locked and
in lowest position, side rails in place, and call light within reach.
[2024-03-28] MEDS: CYMBALTA DELAYED RELEASE 30 MG PO (20:54)
[2024-03-29] MEDS: TORADOL 15 MG IV ×4 (01:31→18:00)
[2024-03-29] MEDS: TYLENOL PO ×5 (01:32→15:32)
[2024-03-29] MEDS: DILAUDID 0.5 MG IV ×3 (02:10→16:29)
[2024-03-29 03:20] VITALS: BP 123/73
[2024-03-29 06:00] VITALS: BMI 24.9
[2024-03-29 06:10] LABS: % Basophils 0.1 % (0-2); % Immature Granulocytes 0.2 % (0-0.5); % Lymphocytes 4.2 % (20.5-51.1); % Monocytes 9.1 % (1.7-9.3); % Neutrophils 86.4 % (42.2-75.2); Absolute Lymphocytes 0.5 10^3/uL (1.2-3.4); Absolute Neutrophils 9.6 10^3/uL (1.4-6.5); Hemoglobin 13.5 g/dL (13.0-18.0); Mean Corp Hgb Conc. 33.8 g/dL (33.0-37.0); Mean Corpuscular Hgb 29.6 pg (27.0-31.0); Mean Corpuscular Volume 87.7 fL (80.0-94.0); Mean Platelet Volume 9.9 fL (7.4-10.4); Nucleated Red Blood Cells % 0 % (-); Platelet Count 242 10^3/uL (130-400); Red Blood Cell Count 4.56 10^6/uL (4.70-6.10); Red Cell Dist. Width 13.8 % (11.5-14.5); White Blood Cell Count 11.1 10^3/uL (4.8-10.8)
[2024-03-29] MEDS: NORMOSOL-R/PLASMALYTE-A 1000 IV ×2 (06:19→14:40)
[2024-03-29 06:32] LABS: Blood Urea Nitrogen 13 mg/dl (9-20); Calcium 8.4 mg/dl (8.4-10.2); Carbon Dioxide 24 mmol/L (22-30); Chloride 101 mmol/L (98-107); Estimated Creatinine Clearance 78 ml/min; Glucose 138 mg/dl (70-99); Potassium 4.2 mmol/L (3.5-5.1); Sodium 135 mmol/L (135-145); eGFR > 60.00
[2024-03-29 07:30] VITALS: BP 121/65
[2024-03-29] MEDS: CYMBALTA DELAYED RELEASE 30 MG PO ×2 (09:58→19:44)
[2024-03-29] MEDS: ENTEREG 12 MG PO ×2 (09:59→19:44)
--- NOTE | 2024-03-29 11:22 | W.PN.GS2 ---
Today's Communication / Plan
-
Advance diet
Pain management
Assessment / Plan
-
68 yo male with a h/o recurrent sigmoid diverticulitis now POD #1 robotic sigmoid colectomy for management
AFVSS
Labs stable post operatively
Passing flatus
--Advance to LRD
--Pain management scheduled and prn
--OOB/Ambulate
--D/C oakes for voiding trial
--Decrease IVF to 75ml/hr, will d/c once tolerating PO
--Lovenox for VTE ppx
dispo planning: home later today vs most likely tomorrow once tolerating diet and pain well managed
Subjective Data
-
Date of Service: March 29, 2024
Patient seen and examined at bedside with Dr. Philip. Clarke n/v. Passing flatus. Soreness to incisions and having difficulty moving.
Objective Data
-
Intake and Output
03/28/24 03/29/24 03/30/24
06:59 06:59 06:59
Intake Total 1400 / 1400
Output Total 1425 / 1425
Balance -25 / -25
Intake:
Oral fluids 100 / 100
IV fluids (Total) 1300 / 1300
Normosal 200 / 200
Output:
Urine, [place] 1425 / 1425
Vital Signs
Temp Pulse Resp BP Pulse Ox
97.7 F 63 16 121/65 98
03/29/24 07:30 03/29/24 07:30 03/29/24 07:30 03/29/24 07:30 03/29/24 07:30
Lab Results
03/29/24 04:58
03/29/24 04:58
Calcium 8.4 mg/dl (8.4-10.2) 03/29/24 04:58
Total Bilirubin 0.4 mg/dl (0.2-1.3) 03/18/24 10:35
AST 33 U/L (17-59) 03/18/24 10:35
ALT 44 U/L (0-50) 03/18/24 10:35
Alkaline Phosphatase 66 U/L (38-126) 03/18/24 10:35
Total Protein 7.3 g/dl (6.3-8.2) 03/18/24 10:35
Albumin 4.4 g/dl (3.5-5.0) 03/18/24 10:35
Physical Exam
-
NAD
ABD soft, minimal distention, incisional tenderness
Incisions well approximated with intact glue
--- NOTE | 2024-03-29 11:22 | CM ---
Reviewed the chart notes and spoke with the patient and his spouse at the bedside. The patient is s/p robotic sigmoid colectomy with intracorporeal anastomosis. The patient resides with his spouse in two story home with two steps to enter. The
patient reports no DME/VN/SNF in the past. The patient confirmed his pharmacy of choice is the [facility]. CM continues to be available to patient/family and is monitoring medical plan for needs at discharge.
Plan: Discharge to home when medically stable.
[2024-03-29 11:30] VITALS: BP 128/77
[2024-03-29 14:33] VITALS: BP 114/61
[2024-03-29 16:30] VITALS: BP 104/53
[2024-03-29] MEDS: LOVENOX 40 MG SC (17:55)
[2024-03-29] MEDS: TYLENOL 650 MG PO (19:44)
[2024-03-29 23:00] VITALS: BP 119/60
[2024-03-30] MEDS: TYLENOL PO ×2 (01:04→04:39)
[2024-03-30] MEDS: TORADOL 15 MG IV ×2 (01:29→06:03)
[2024-03-30] MEDS: DILAUDID 0.5 MG IV (01:33)
[2024-03-30] MEDS: NORMOSOL-R/PLASMALYTE-A 1000 IV (02:15)
[2024-03-30 06:00] VITALS: BMI 25.2
[2024-03-30] MEDS: CYMBALTA DELAYED RELEASE 30 MG PO (07:45)
[2024-03-30] MEDS: ENTEREG 12 MG PO (07:45)
[2024-03-30] MEDS: ROXICODONE 5 MG PO ×2 (07:45→12:21)
[2024-03-30] MEDS: TYLENOL 650 MG PO ×2 (07:47→12:20)
[2024-03-30 08:18] VITALS: BP 127/67
--- NOTE | 2024-03-30 09:13 | W.PN.GS2 ---
Today's Communication / Plan
-
Dispo planning
Assessment / Plan
-
68 yo male with a h/o recurrent sigmoid diverticulitis now POD #2 robotic sigmoid colectomy for management
AFVSS
Passing flatus/stools and tolerating diet
Pain improved from yesterday
--Continue LRD
--Pain management scheduled and prn meds
--OOB/Ambulate
--Lovenox for VTE ppx
dispo planning: home later today
Subjective Data
-
Date of Service: March 30, 2024
Patient seen and examined at bedside with Dr. Philip. Clarke n/v. Tolerating diet. Pain improved today but still present. Able to ambulate and preform ADLs. Passing flatus, bm's. Voiding well.
Objective Data
-
Intake and Output
03/29/24 03/30/24 03/31/24
06:59 06:59 06:59
Intake Total 1400 / 1400 1950 / 1950
Output Total 1425 / 1425 500 / 500
Balance -25 / -25 1450 / 1450
Intake:
Oral fluids 100 / 100 1050 / 1050
IV fluids (Total) 1300 / 1300 900 / 900
Normosal 200 / 200
Output:
Urine, [place] 1425 / 1425
Urine, Voided 500 / 500
Other:
Number of approximated MODERATE 2
amounts of urine
Vital Signs
Temp Pulse Resp BP Pulse Ox
97.8 F 60 18 127/67 97
03/30/24 08:18 03/30/24 08:18 03/30/24 08:18 03/30/24 08:18 03/30/24 08:18
Lab Results
03/29/24 04:58
03/29/24 04:58
Calcium 8.4 mg/dl (8.4-10.2) 03/29/24 04:58
Total Bilirubin 0.4 mg/dl (0.2-1.3) 03/18/24 10:35
AST 33 U/L (17-59) 03/18/24 10:35
ALT 44 U/L (0-50) 03/18/24 10:35
Alkaline Phosphatase 66 U/L (38-126) 03/18/24 10:35
Total Protein 7.3 g/dl (6.3-8.2) 03/18/24 10:35
Albumin 4.4 g/dl (3.5-5.0) 03/18/24 10:35
Physical Exam
-
NAD
ABD soft, ND, incisional tenderness
Incisions well approximated with intact glue
--- NOTE | 2024-03-30 09:19 | W.DS.TRANS ---
Addendum entered and electronically signed by BRIJESH Vargas 03/31/24 16:39:
#[id number]
Original Note:
DC Summary - Save All Operator
-
Discharge Instructions:
Sleep Apnea Risk Low
Discharge Diagnosis/Procedures Robotic sigmoidectomy
Diet Low Fiber
Activity No strenuous activity
Additional Activity do not lift over 10lbs (gallon of milk)
Driving Restrictions Wait until off narcotics/comfortable twisting
Bathing Restrictions OK to Shower
Wound Care Avoid picking or scrubbing the glue off your
incisions; allow it to flake off on its own over
the next 2-3 weeks
Instructions: Low-fiber diet
Stand-Alone Forms:
Changes to Home Medications: No
Discharge Medications:
DC Medications w/original date entered in [facility]
cyanocobalamin (vitamin B-12) 1,000 mcg tablet 1,000 mcg PO DAILY anemia 11/05/18
albuterol sulfate 90 mcg/actuation aerosol inhaler 2 puff inhalation R Q4HPRN PRN sob 02/01/24
duloxetine 30 mg capsule,delayed release 30 mg PO BID 02/01/24
cholecalciferol (vitamin D3) 25 mcg (1,000 unit) capsule (Vitamin D3) 25 mcg PO DAILY 03/21/24
multivitamin 1 tab PO DAILY 03/21/24
acetaminophen 325 mg tablet 650 mg (2 x 325 mg) PO Q4HPRN PRN mild pain #1 tab 03/30/24
ibuprofen 200 mg tablet 400 - 600 mg (2 - 3 x 200 mg) PO Q6HPRN PRN moderate pain #1 tab 03/30/24
oxycodone 5 mg tablet 5 mg PO Q4HPRN PRN breakthrough/severe pain #15 tabs 03/30/24
Home Medication Changes
Pending Results: No
[2024-03-30 11:30] VITALS: BP 121/68
--- NOTE | 2024-03-30 12:16 | CM ---
Reviewed the chart notes and spoke with the patient and his spouse at the bedside. IMM reviewed and placed on chart. Patient is discharged to home today. Patient's spouse will provide transportation. No needs.
Plan; Discharge to home today.
[2024-03-30] MEDS: TORADOL IV (12:21)
== END 2024-03-30 12:35 | disposition home or self-care (01) | DRG 331 ==
LOC: 2 SOUTH 11:23
PROVIDERS: ADMITTING PHYSICIAN Surgery; FAMILY PHYSICIAN Internal Medicine
PROC: 0DTN4ZZ Resection of Sigmoid Colon, Percutaneous Endoscopic Approach (ICD-10-PCS; 2024-03-28)
PROC: 8E0W4CZ Robotic Assisted Procedure of Trunk Region, Percutaneous Endoscopic Approach (ICD-10-PCS; 2024-03-28)
PROC: 0DNU4ZZ Release Omentum, Percutaneous Endoscopic Approach (ICD-10-PCS; 2024-03-28)
DX: K57.32 Diverticulitis of large intestine without perforation or abscess without bleeding (principal); K66.0 Peritoneal adhesions (postprocedural) (postinfection)
CPT/HCPCS: 88307; 36415; 80048; 80053; 83036; 85025; 85027; 85610; 85730; 86850; 86900; 86901; 93005; 99406; J1335

== ENCOUNTER → 2024-06-11 12:38 | Outpatient (REF) | payer OTHER, SELFPAY | LOC: PAVMRI 12:38 | PROVIDERS: ATTENDING PHYSICIAN Nurse Practitioner Family | DX: G89.4 Chronic pain syndrome (principal) | CPT/HCPCS: 72141 ==

== ENCOUNTER → 2024-09-09 14:19 | Outpatient (REF) | payer OTHER, SELFPAY | LOC: EMG 14:19 | PROVIDERS: ATTENDING PHYSICIAN Psychiatry & Neurology Neurology; FAMILY PHYSICIAN Internal Medicine | DX: M79.603 Pain in arm, unspecified (principal); R20.0 Anesthesia of skin | CPT/HCPCS: 95886; 95911 ==

== ENCOUNTER → 2024-09-12 12:54 | Outpatient (REF) | payer OTHER, SELFPAY | LOC: PAVMRI 12:54 | PROVIDERS: ATTENDING PHYSICIAN Psychiatry & Neurology Neurology; FAMILY PHYSICIAN Internal Medicine | DX: M54.16 Radiculopathy, lumbar region (principal) | CPT/HCPCS: 72148 ==

== ENCOUNTER → 2024-10-08 10:47 | Outpatient (REF) | payer OTHER, SELFPAY | LOC: EMG 10:47 | PROVIDERS: ATTENDING PHYSICIAN Physician Assistant Surgical | DX: M79.606 Pain in leg, unspecified (principal); R20.0 Anesthesia of skin | CPT/HCPCS: 95886; 95910 ==